=== PATIENT | male | born 1980 | race Caucasian/White ===

== ENCOUNTER 2016-11-05 16:53 | Emergency (ER) | payer SELFPAY ==
[2016-11-05 17:01] VITALS: BP 141/89; PULSE 83; RESP 17; TEMP 98.1; O2SAT 98
[2016-11-05] MEDS ORDERED: Sodium Chloride 0.9% 1,000 ML IV STA (17:24)
--- NOTE | 2016-11-05 17:26 | ED PDOC ---
HPI: CCC, URI, Sore Throat Time Seen by Provider: 11/05/16 17:24 Chief Complaint (Nursing): ENT Problem Chief Complaint (Provider): SORE THROAT History Per: Patient (36 Y/O MALE HERE FOR EVALUATION OF SORE THROAT/BODYACHES/ WEAKNESS NOTED THIS WEEK. HAS TREATED SELF WITH AUGMENTIN X 2 COURSES WITH SHORT TERM RELIEF. 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 ) Past Medical History Reviewed: Historical Data, Nursing Documentation, Vital Signs Vital Signs: Last Vital Signs Temp 98.1 F 11/05/16 16:56 Pulse 83 11/05/16 16:56 Resp 17 11/05/16 16:56 BP 141/89 11/05/16 16:56 Pulse Ox 98 11/05/16 19:13 - Medical History PMH: Hypercholesterolemia (high triglyceride) - Family History Family History: States: No Known Family Hx - Home Medications Home Medications: Ambulatory Orders Medication Instructions Recorded Ibuprofen [Motrin] 400 mg PO Q6 #30 tab 04/01/16 Naproxen [Naprosyn Tab] 375 mg PO Q8 PRN #21 tab 11/05/16 - Allergies Allergies/Adverse Reactions: Allergies Allergy/AdvReac Type Severity Reaction Status Date / Time theophylline Allergy Severe low blood Verified 11/05/16 16:56 pressure Review of Systems ROS Statement: Except As Marked, All Systems Reviewed And Found Negative Physical Exam - Reviewed Nursing Documentation Reviewed: Yes Vital Signs Reviewed: Yes - Physical Exam Appears: Positive for: Well, Non-toxic, No Acute Distress Head Exam: Positive for: ATRAUMATIC, NORMAL INSPECTION, NORMOCEPHALIC Skin: Positive for: Warm. Negative for: Normal Color (PATIENT IS [place]) Eye Exam: Positive for: EOMI, Normal appearance, PERRL ENT: Positive for: Normal ENT Inspection Neck: Positive for: Normal, Painless ROM Cardiovascular/Chest: Positive for: Regular Rate, Rhythm Respiratory: Positive for: CNT, Normal Breath Sounds Gastrointestinal/Abdominal: Positive for: Normal Exam, Bowel Sounds, Soft Back: Positive for: Normal Inspection Extremity: Positive for: Normal ROM Neurologic/Psych: Positive for: Alert, Oriented - Laboratory Results Result Diagrams: 11/05/16 18:08 11/05/16 18:08 - ECG O2 Sat by Pulse Oximetry: 98 - Progress ED Course And Treament: RAPID STREP: NEG MONO: NEG RAPID HIV: NEG Disposition - Clinical Impression Clinical Impression: Sore throat, Weakness - Patient ED Disposition Is Patient to be Admitted: No - Disposition Referrals: Shlomo Sands MD [Staff Provider] - [facility] [place] [Outside] Disposition: Routine/Home Disposition Time: 19:11 Condition: FAIR Prescriptions: Naproxen [Naprosyn Tab] 375 mg PO Q8 PRN #21 tab PRN Reason: Pain, Moderate (4-7) Instructions: Weakness (ED) Forms: [facility] ED School/Work Excuse
[2016-11-05 18:14] LABS: BASO % 0.4 % (0.0-2.0); EOS # 0.1 K/uL (0.0-0.7); EOS % 1.6 % (0.0-4.0); LYMPH # 1.9 K/uL (1.0-4.3); LYMPH % 31.1 % (20.0-40.0); MEAN CELL VOLUME 79.3 fl (80.0-94.0); MEAN CORPUSCULAR HEMOGLOBIN 26.2 pg (27.0-31.0); MEAN CORPUSCULAR HGB CONC 33.1 g/dL (33.0-37.0); MEAN PLATELET VOLUME 8.5 fl (7.2-11.7); MONO # 0.5 K/uL (0.0-0.8); MONO % 8.4 % (0.0-10.0); NEUT # 3.6 K/uL (1.8-7.0); NEUT % 58.5 % (50.0-75.0); NRBC % 0.2 % (0.0-0.0); RBC 5.73 Mil/uL (4.40-5.90); RED CELL DISTRIBUTION WIDTH 13.2 % (11.5-14.5); WHITE BLOOD COUNT 6.2 K/uL (4.8-10.8)
[2016-11-05 18:24] LABS: ALB/GLOB RATIO 1.7 (1.0-2.1); ALBUMIN 4.6 g/dL (3.5-5.0); ALT/SGPT 30 U/L (21-72); AST/SGOT 32 U/L (17-59); BLOOD UREA NITROGEN 21 mg/dl (9-20); CALCIUM 9.3 mg/dL (8.4-10.2); GFR AFRICAN-AMERICAN > 60; GFR NON-AFRICAN AMERICAN > 60
== END 2016-11-05 20:04 | disposition home or self-care (01) ==
LOC: H.ER 16:53
DX: R53.1 Weakness (principal); J02.9 Acute pharyngitis, unspecified